=== PATIENT | male | born 1965 | race Asian ===

== ENCOUNTER 2017-05-02 08:46 | Emergency (ER) | payer OTHER ==
[~2017-05-02] VITALS: Ht 177.8 cm; Wt 82.7 kg
[2017-05-02 08:47] VITALS: BP 154/89
[2017-05-02] MEDS ORDERED: PROPARACAINE OPHTH 0.5%, 15ML ONE (09:12)
[2017-05-02] MEDS ORDERED: FLUORESCEIN OPHTHALMIC 1 MG STRIP ONE (09:12)
[2017-05-02] MEDS ORDERED: FLUORESCEIN OPHTHALMIC 1 MG STRIP EACHEYE ONE (09:30)
[2017-05-02] MEDS ORDERED: PROPARACAINE OPHTH 0.5%, 15ML EACHEYE ONE (09:30)
== END 2017-05-02 10:10 | disposition home or self-care (01) ==
LOC: ED 09:21
DX: H01.004 Unspecified blepharitis left upper eyelid (principal); L03.213 Periorbital cellulitis
CPT/HCPCS: 99283